=== PATIENT | female | born 1965 | race Caucasian/White ===

== ENCOUNTER 2018-06-10 02:50 | Emergency (ER) | payer OTHER ==
[~2018-06-10] VITALS: Ht 170.2 cm; Wt 65.8 kg
[~2018-06-10 02:50] MED LIST: ALBU.083IS IH; ALBU90OI INH; ALBU90OI6 INH; ALBU90OI61 INH; BUSP15 PO; Bactrim Ds Tab1 EACH PO; CEPH500 PO; CIPR500 PO; Cyclobenzaprine5 MG PO; DIPATR PO; DOCU100 PO; DOXY100 PO; DULO30 PO; FLUSAL1005 IH; HTP; HYDACE25S PR; HYDACE5 PO; HYDR1TAB94 PO; HYDRO EYE; IBUP800 PO; IPRAIS NEB; Keflex500 MG PO; LIDO2L MM; LISI5 PO; LITH300CA PO; MELA3 PO; MELO7.5 PO; METCAR500 PO; METR500 PO; MONT10T PO; Monodox100 MG PO; NAPR500 PO; NEOPOLHCSU OT; OMEP20ER PO; ONDA4 PO; OXYACE5T PO; PARO20 PO; PHENA200 PO; PRED20 PO; PRIMATENE MIST; PROACE100 PO; PROCODE120 PO; PROM25 PO; PROM25S PR; Prednisone20 MG PO; Prinivil10 MG PO; RXCODACET PO; RXPROM25S PR; SULTRIDS PO; SYMBYAX; Strattera100 MG PO; TRAM50 PO; Tylenol325 MG PO; Ventolin Soln3 ML INH; [UNRECOGNIZED DRUG - OTHER]; [UNRECOGNIZED DRUG - OTHER]; [UNRECOGNIZED DRUG - OTHER]
[2018-06-10] MEDS ORDERED: Mupirocin22 GM TOP (03:28)
== END 2018-06-10 03:38 | disposition home or self-care (01) ==
LOC: ER 02:50
DX: T21.23XA Burn of second degree of upper back, initial encounter (principal); T31.0 Burns involving less than 10% of body surface; I10 Essential (primary) hypertension; J45.909 Unspecified asthma, uncomplicated; Z88.8 Allergy status to other drugs, medicaments and biological substances; Z79.899 Other long term (current) drug therapy; X19.XXXA Contact with other heat and hot substances, initial encounter
CPT/HCPCS: 99282

== ENCOUNTER 2018-09-19 22:45 | Emergency (ER) | payer OTHER ==
[~2018-09-19] VITALS: Ht 170.2 cm; Wt 68.0 kg
[~2018-09-19 22:45] MED LIST changes: +Mupirocin22 GM TOP
== END 2018-09-20 | disposition left against medical advice (07) ==
LOC: ER 22:45
DX: Z53.21 Procedure and treatment not carried out due to patient leaving prior to being seen by health care provider (principal)

== ENCOUNTER 2018-11-08 10:38 | Emergency (ER) | payer OTHER ==
[~2018-11-08] VITALS: Ht 170.2 cm; Wt 65.8 kg
[2018-11-08 11:47] LABS: BASOPHILS ABSOLUTE AUTO 0.06 K/mm3 (0.00-0.23); BASOPHILS PERCENT AUTO 1 % (0-2); EOSINOPHILS ABSOLUTE AUTO 0.16 K/mm3 (0.00-0.68); EOSINOPHILS PERCENT AUTO 2 % (0-6); Hematocrit 46.3 % (33.0-51.0); Hemoglobin 15.2 g/dL (11.5-16.0); IMMATURE GRAN ABSOLUTE AUTO 0.02 K/mm3 (0.00-0.10); IMMATURE GRAN PERCENT AUTO 0 % (0-1); LYMPHOCYTES ABSOLUTE AUTO 2.16 K/mm3 (0.84-5.20); LYMPHOCYTES PERCENT AUTO 32 % (21-46); MONOCYTES ABSOLUTE AUTO 0.57 K/mm3 (0.16-1.47); MONOCYTES PERCENT AUTO 9 % (4-13); Mean Corpuscular HGB 30.5 pg (26.0-34.0); Mean Corpuscular HGB Conc 32.8 g/dL (31.5-36.5); Mean Corpuscular Volume 93 fL (80-100); Mean Platelet Volume 9.3 fL (9.1-12.4); NEUTROPHILS ABSOLUTE AUTO 3.76 K/mm3 (1.96-9.15); NEUTROPHILS PERCENT AUTO 56 % (41-73); Platelet Count 313 K/mm3 (150-400); RDW Coefficient Variation 12.1 % (11.7-14.2); RDW Standard Deviation 41.6 fL (35.1-46.3); Red Blood Cell Count 4.99 M/mm3 (3.80-5.20); White Blood Cell Count 6.73 K/mm3 (4.00-11.30)
[2018-11-08 11:49] LABS: Source, Urine Clean Catch
[2018-11-08 11:52] LABS: Bilirubin, Urine Neg (Neg); Blood, Urine 1+ (Neg); Glucose Qualitative, Urine Neg (Neg); Ketones, Urine Neg (Neg); Leukocyte Esterase, Urine 3+ (Neg); Nitrite, Urine Pos (Neg); Protein, Urine Neg (Neg); Specific Gravity, Urine 1.025 (1.003-1.022); Urobilinogen, Urine NORM (Normal)
[2018-11-08 12:03] LABS: Alanine Aminotransfer (ALT/SGP 33 U/L (12-78); Albumin, Blood 4.2 g/dL (3.4-5.0); Alk Phos 106 U/L (50-136); Anion Gap 10 mmol/L (6-16); Aspartate Aminotrans (AST/SGOT 19 U/L (12-37); Bilirubin, Total 0.7 mg/dL (0.1-1.0); Blood Urea Nitrogen 18 mg/dL (8-24); Bun/Creatinine Ratio 22.3 (12.0-20.0); C-REACTIVE PROTEIN, EXT RANGE <0.290 mg/dL (0.000-0.300); CO2, Blood 27 mmol/L (21-32); Calcium, Blood 9.6 mg/dL (8.5-10.1); Chloride, Blood 103 mmol/L (98-108); Creatinine, Blood 0.81 mg/dL (0.40-1.00); Glomerular Filtration Rate >60 (60-); Glucose, Blood 98 mg/dL (70-99); Potassium, Blood 4.6 mmol/L (3.5-5.5); Sodium, Blood 140 mmol/L (136-145); Total Protein, Blood 8.2 g/dL (6.4-8.2)
[2018-11-08 12:05] LABS: Appearance, Urine Hazy (Clear); Bacteria Many /hpf; Color, Urine Yellow (P-Yellow); Squamous Epithelial Cells Mod /hpf (Few)
[2018-11-08] MEDS ORDERED: ALBU90OI61 INH (12:19)
[2018-11-08] MEDS ORDERED: GABA600 PO (12:19)
[2018-11-08] MEDS ORDERED: Neurontin 300300 MG PO (12:57)
[2018-11-08] MEDS ORDERED: ALBU90OI INH (12:57)
[2018-11-08] MEDS ORDERED: Mobic7.5 MG PO (12:57)
[2018-11-08] MEDS ORDERED: Prinivil10 MG PO (12:57)
[2018-11-08] MEDS ORDERED: ALBU2.5V5 NEB (12:57)
== END 2018-11-08 13:08 | disposition home or self-care (01) ==
LOC: ER 10:38
PROVIDERS: Physician Assistant
DX: S70.11XA Contusion of right thigh, initial encounter (principal); S70.02XA Contusion of left hip, initial encounter; S70.01XA Contusion of right hip, initial encounter; R20.2 Paresthesia of skin; F15.10 Other stimulant abuse, uncomplicated; I10 Essential (primary) hypertension; J45.909 Unspecified asthma, uncomplicated; F17.200 Nicotine dependence, unspecified, uncomplicated; Z79.899 Other long term (current) drug therapy; W19.XXXA Unspecified fall, initial encounter
CPT/HCPCS: 36415; 72170; 80053; 81001; 85025; 86140; 93005; 93010; 99284-25

== ENCOUNTER 2019-02-09 18:53 | Emergency (ER) | payer OTHER ==
[~2019-02-09] VITALS: Ht 170.2 cm; Wt 68.0 kg
[~2019-02-09 18:53] MED LIST changes: +ALBU2.5V5 NEB; +GABA600 PO; +Mobic7.5 MG PO; +Neurontin 300300 MG PO
[2019-02-09] MEDS ORDERED: ALBU90OI INH (21:40)
== END 2019-02-09 21:56 | disposition home or self-care (01) ==
LOC: ER 18:53
DX: S30.0XXA Contusion of lower back and pelvis, initial encounter (principal); M25.561 Pain in right knee; M25.552 Pain in left hip; F15.10 Other stimulant abuse, uncomplicated; R20.2 Paresthesia of skin; X58.XXXA Exposure to other specified factors, initial encounter; J45.909 Unspecified asthma, uncomplicated; I10 Essential (primary) hypertension; F17.200 Nicotine dependence, unspecified, uncomplicated; Z79.899 Other long term (current) drug therapy
CPT/HCPCS: 72170; 99284-25

== ENCOUNTER 2020-03-16 13:57 | Emergency (ER) | payer OTHER ==
[~2020-03-16] VITALS: Ht 170.2 cm; Wt 65.8 kg
[2020-03-16] MEDS ORDERED: CEPH500 PO (15:23)
== END 2020-03-16 15:50 | disposition home or self-care (01) ==
LOC: ER 13:57
DX: L03.114 Cellulitis of left upper limb (principal); Z91.048 Other nonmedicinal substance allergy status; I10 Essential (primary) hypertension; J45.909 Unspecified asthma, uncomplicated; Z79.899 Other long term (current) drug therapy; F17.200 Nicotine dependence, unspecified, uncomplicated
CPT/HCPCS: 73070; 99283-25; A9270-GY

== ENCOUNTER 2022-03-25 09:25 | Emergency (ER) | payer OTHER ==
[~2022-03-25] VITALS: Ht 170.2 cm; Wt 65.8 kg
[~2022-03-25 09:25] MED LIST changes: +ACET500 PO; +GABA300 PO; +IBUP400 PO; +MIRALAX17 GM PO; +NITR100CA PO; +Robaxin750 MG PO
[2022-03-25] MEDS ORDERED: CYCL10 PO ×2 (10:43→11:31)
[2022-03-25] MEDS ORDERED: MELOXICAM5 MG (10:44)
[2022-03-25] MEDS ORDERED: MAGCIT300 PO (11:31)
[2022-03-25] MEDS ORDERED: LIDO700A20 TOP (11:31)
[2022-03-25] MEDS ORDERED: DOC250 PO (11:31)
== END 2022-03-25 12:08 | disposition home or self-care (01) ==
LOC: ER 09:25
DX: M62.830 Muscle spasm of back (principal); K59.00 Constipation, unspecified; J45.909 Unspecified asthma, uncomplicated; I10 Essential (primary) hypertension; F17.200 Nicotine dependence, unspecified, uncomplicated; Z91.048 Other nonmedicinal substance allergy status; Z79.899 Other long term (current) drug therapy
CPT/HCPCS: 74018; A9270